=== PATIENT | male | born 1965 | race American Indian/Alaskan Native ===

== ENCOUNTER 2021-08-25 18:53 | Emergency (ER) | payer MEDICAID ==
--- NOTE | 2021-08-25 19:01 | Emergency Department Report ---
ED General Adult HPI - General Chief complaint: GI Bleed Stated complaint: RECTAL BLEEDING/GI BLEED Time Seen by Provider: 08/25/21 19:00 Source: patient, EMS (Verbal report received from emergency medical services. EMS documentation not available at time of chart dictation ), RN notes reviewed Mode of arrival: Stretcher Limitations: No Limitations - History of Present Illness Initial comments: This is a 55-year-old gentleman. He is brought to the hospital by emergency medical services with a complaint of lower GI bleed. Patient currently taking Eliquis for left lower extremity DVT. 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 He was recently admitted to [facility] for lower GI blee d. He does not believe he had a colonoscopy. He denies physical pain. He currently denies headache, neck pain, chest pain, abdominal pain, shortness of breath and dysuria. He reports bright red blood per rectum today x1. -: Sudden Consistency: now resolved Improves with: none Worsens with: none Associated Symptoms: denies other symptoms - Related Data Allergies Allergy/AdvReac Type Severity Reaction Status Date / Time Sulfa (Sulfonamide Allergy Hives Verified 08/25/21 19:38 Antibiotics) ED Review of Systems ROS: Stated complaint: RECTAL BLEEDING/GI BLEED Other details as noted in HPI Comment: All other systems reviewed and negative Gastrointestinal: hematochezia ED Physical Exam - General Limitations: No Limitations General appearance: alert, in no apparent distress - Head Head exam: Present: atraumatic, normocephalic - Eye Eye exam: Present: normal appearance, EOMI. Absent: nystagmus - ENT ENT exam: Present: normal exam, normal orophraynx, mucous membranes moist, normal external ear exam - Neck Neck exam: Present: normal inspection, full ROM. Absent: tenderness, meningismus - Respiratory Respiratory exam: Present: normal lung sounds bilaterally. Absent: respiratory distress, wheezes, rales, rhonchi, stridor, decreased breath sounds - Cardiovascular Cardiovascular Exam: Present: regular rate, normal rhythm, normal heart sounds. Absent: bradycardia, tachycardia, irregular rhythm, systolic murmur, diastolic murmur, rubs, gallop - GI/Abdominal GI/Abdominal exam: Present: soft, normal bowel sounds. Absent: distended, tenderness, guarding, rebound, rigid - Rectal Rectal exam: Present: normal inspection (Patient provides consent for rectal examination. Chaperoned by nurse Shira), normal rectal tone. Absent: black stool, bloody stool - Extremities Exam Extremities exam: Present: normal inspection, full ROM, other (2+ pulses noted in the bilateral upper and lower extremities. There is no palpable cord. negative Homans sign. Muscular compartments are soft. The pelvis is stable.). Absent: pedal edema, calf tenderness - Back Exam Back exam: Present: normal inspection. Absent: tenderness, CVA tenderness (R), CVA tenderness (L), paraspinal tenderness, vertebral tenderness - Neurological Exam Neurological exam: Present: alert, oriented X3, other (No facial droop. Tongue midline. Extraocular movements intact bilaterally. Facial sensation intact to light touch in V1, V2, V3 distribution bilaterally. 5 and a 5 strength in 4 extremities. Sensation intact to light touch in 4 extremities.). Absent: motor sensory deficit - Psychiatric Psychiatric exam: Present: normal affect, normal mood - Skin Skin exam: Present: warm, dry, intact, normal color. Absent: rash ED Course Vital Signs 08/25/21 19:38 Temperature 97.9 F Pulse Rate 88 Respiratory 18 Rate Blood Pressure 115/88 O2 Sat by Pulse 100 Oximetry - Reevaluation(s) Reevaluation #1: 08/25/21 19:32 Differential diagnosis, including but not limited to: Angiodysplasia, diverticulosis, anticoagulated Lower GI bleed Assessment and plan: 55-year-old gentleman with report of lower GI bleed. On my examination, he is afebrile, with reassuring vital signs, and in no acute distress. No blood on rectal examination. Furthermore, reports only one lifetime DVT, in 2019. It is not clear why he reports that he is still on systemic anticoagulation. The patient is somewhat of a poor historian, and is not able to clarify why exactly he is on anticoagulation when he had a DVT in 2019. In any event, check appropriate laboratory studies, and reassess. I do not appreciate rectal bleeding at this time. Should laboratory studies be unremarkable, I think it would be reasonable for the patient to temporarily hold systemic anticoagulation, very closely follow-up with outpatient primary care and/or GI, to clarify whether or not he needs to be on lifelong anticoagulation. 08/25/21 20:20 Laboratory studies are essentially unremarkable. Vital signs are stable at this time. Patient updated. CBC specifically unremarkable. Liver and renal panel unremarkable. Patient counseled on findings. May temporarily discontinue systemic anticoagulation, will need to closely follow-up with outpatient primary care, hematology oncology, GI. Return precautions reviewed. All questions answered. Patient asking to eat at this time ED Medical Decision Making - Lab Data Result diagrams: 08/25/21 19:23 08/25/21 19:23 Vital Signs 08/25/21 19:38 Temperature 97.9 F Pulse Rate 88 Respiratory 18 Rate Blood Pressure 115/88 O2 Sat by Pulse 100 Oximetry Lab Results 08/25/21 08/25/21 Range/Units 19:23 19:23 WBC 5.6 (4.5-11.0) K/mm3 RBC 4.55 (3.65-5.03) M/mm3 Hgb 12.7 (11.8-15.2) gm/dl Hct 39.3 (35.5-45.6) % MCV 86 (84-94) fl MCH 28 (28-32) pg MCHC 32 (32-34) % RDW 13.7 (13.2-15.2) % Plt Count 242 (140-440) K/mm3 Lymph % (Auto) 27.1 (13.4-35.0) % [place] % (Auto) 9.9 H (0.0-7.3) % Eos % (Auto) 1.6 (0.0-4.3) % Baso % (Auto) 0.5 (0.0-1.8) % Lymph # (Auto) 1.5 (1.2-5.4) K/mm3 [place] # (Auto) 0.6 (0.0-0.8) K/mm3 Eos # (Auto) 0.1 (0.0-0.4) K/mm3 Baso # (Auto) 0.0 (0.0-0.1) K/mm3 Seg Neutrophils % 60.9 (40.0-70.0) % Seg Neutrophils # 3.4 (1.8-7.7) K/mm3 Sodium 141 (137-145) mmol/L Potassium 3.9 (3.6-5.0) mmol/L Chloride 103.4 (98-107) mmol/L Carbon Dioxide 25 (22-30) mmol/L Anion Gap 17 mmol/L BUN 14 (9-20) mg/dL Creatinine 0.8 (0.8-1.3) mg/dL Estimated GFR > 60 ml/min BUN/Creatinine Ratio 18 % Glucose 84 (75-100) mg/dL Calcium 9.0 (8.4-10.2) mg/dL Total Bilirubin 0.80 (0.1-1.2) mg/dL AST 33 (5-40) units/L ALT 46 (7-56) units/L Alkaline Phosphatase 85 (35-129) units/L Total Protein 7.3 (6.3-8.2) g/dL Albumin 4.8 (3.9-5) g/dL Albumin/Globulin Ratio 1.9 % - EKG Data -: EKG Interpreted by Me EKG shows normal: sinus rhythm Rate: normal - EKG Data 08/25/21 19:31 The EKG is interpreted at 19: 24 Sinus rhythm, rate 88 bpm. There is multiple PVCs, left axis deviation, QTC 488 ms, motion artifact. Abnormal EKG. Not a STEMI. Critical care attestation.: If time is entered above; I have spent that time in minutes in the direct care of this critically ill patient, excluding procedure time. ED Disposition Clinical Impression: History of GI bleed Disposition: HOME / SELF CARE / HOMELESS Is pt being admited?: No Does the pt Need Aspirin: No Condition: Good Additional Instructions: Do not take Motrin, ibuprofen, Naprosyn, Aleve. Patient may temporarily hold anticoagulation. We do recommend follow-up with a primary care doctor or hematology assurance specialist, such as Dr. Wren, within the next week, to determine patient's suitability to discontinue long- term anticoagulation. [facility] is a local medical clinic where patient may obtain a primary care evaluation. Patient should follow-up with a household appliances salesperson, such as those at [facility], within the next week to 2 weeks. Please return to the emergency room right away with new pain, worsened pain, migration of pain, projectile vomiting, change in mental status, confusion, inability tolerate liquid feeds, new, worsened or different symptoms not present on the initial emergency room evaluation Referrals: EMY WREN MD [Staff Physician] - 3-5 Days [facility] [Provider Group] - 3-5 Days [facility] [Provider Group] - 3-5 Days Forms: Accompanied Note
[2021-08-25 20:11] LABS: Basophils % (Auto) 0.5 % (0.0-1.8); Eosinophils # (Auto) 0.1 K/mm3 (0.0-0.4); Eosinophils % (Auto) 1.6 % (0.0-4.3); Hematocrit 39.3 % (35.5-45.6); Hemoglobin 12.7 gm/dl (11.8-15.2); Lymphocytes # (Auto) 1.5 K/mm3 (1.2-5.4); Lymphocytes % (Auto) 27.1 % (13.4-35.0); Mean Corpuscular HGB Conc 32 % (32-34); Mean Corpuscular Volume 86 fl (84-94); Monocytes # (Auto) 0.6 K/mm3 (0.0-0.8); Monocytes % (Auto) 9.9 % (0.0-7.3); Platelet Count 242 K/mm3 (140-440); Red Blood Count 4.55 M/mm3 (3.65-5.03); Red Cell Distribution Width 13.7 % (13.2-15.2)
[2021-08-25 20:15] LABS: Alanine Aminotransferase 46 units/L (7-56); Albumin 4.8 g/dL (3.9-5); BUN/Creatinine Ratio 18; Blood Urea Nitrogen 14 mg/dL (9-20); Hemolysis Index 3
[2021-08-25 20:21] LABS: INR 1.07 (0.87-1.13)
[2021-08-25 20:22] LABS: Partial Thromboplastin Time 31.4 Sec. (24.2-36.6)
[2021-08-25 22:30] VITALS: BP 116/67
--- NOTE | 2021-08-26 09:46 | Electrocardiograph Report ---
[facility] Test Date: 2021-08-25 Test Time: 19:24:37 Pat Name: EMILY CANALES Department: Room: Gender: M Ward Nurse: [id number] : 1965 Requested By: PEYTON HANSEN Order Number: [id number] Reading MD: Jonnie Saldana Measurements Intervals [place] Rate: 88 P: 63 SC: 194 QRS: -16 QRSD: 101 T: 120 QT: 405 QTc: 488 Interpretive Statements Sinus rhythm Paired ventricular premature complexes Probable left atrial enlargement Nonspecific T abnormalities, lateral leads No previous ECG available for comparison Electronically Signed On 08-26-2021 9:46:19 EDT by Jonnie Saldana
== END 2021-08-25 22:30 | disposition home or self-care (01) ==
LOC: ED 18:53
DX: K92.2 Gastrointestinal hemorrhage, unspecified (principal); Z88.2 Allergy status to sulfonamides; Z79.899 Other long term (current) drug therapy
CPT/HCPCS: 36415; 80053; 82270; 85025; 85610; 85730; 86850; 86900; 86901; 93005; 99284

== ENCOUNTER 2021-11-23 18:12 | Inpatient (IN) | payer MEDICAID ==
--- NOTE | 2021-11-23 19:23 | Emergency Department Report ---
HPI - General Chief Complaint: Fall Time Seen by Provider: 11/23/21 18:47 - HPI HPI: Room 4 The patient is a 55-year-old male present with a chief complaint "I think I was having a TIA." The patient states approximate 1.5 hours prior to arrival he not iced the right side of his face was numb and he felt as though his face was twisting up. Patient states he has residual left-sided weakness from a previous CVA but when he attempted to get out of bed he fell between the bed and his wall and was stuck. The patient states his roommates were knocking on his door but he could not speak. Patient states he wanted to speak but he was aphasic for approximate 45 minutes. The roommates called 911 and police made entry into the room. In the ED the patient states his symptoms have improved and he is now able to speak. Patient states he had numbness in his right face and in his right shoulder but denies having any weakness of the right upper extremity or right lower extremity. ED Past Medical Hx - Past Medical History Hx Hypertension: Yes Hx CVA: Yes (Left Hemiparesis) Hx Congestive Heart Failure: Yes Hx Diabetes: Yes Additional medical history: DVT. GI Bleed - Surgical History Past Surgical History?: No - Family History Family history: no significant - Social History Smoking Status: Never Smoker Substance Use Type: None (Denies illicit drug use), Alcohol (Frequently) ED Review of Systems ROS: Stated complaint: WEAKNESS/CHEST PAIN Other details as noted in HPI Constitutional: no symptoms reported Eyes: denies: eye pain ENT: denies: throat pain Respiratory: no symptoms reported Cardiovascular: denies: chest pain Endocrine: no symptoms reported Gastrointestinal: denies: abdominal pain Genitourinary: denies: dysuria Musculoskeletal: denies: back pain Neurological: paresthesias, other (Aphasia). denies: headache Physical Exam - Physical Exam Vital Signs: Vital Signs 11/23/21 18:12 Temperature 98.2 F Pulse Rate 88 Respiratory 18 Rate Blood Pressure 132/86 [Left] O2 Sat by Pulse 99 Oximetry Physical Exam: GENERAL: The patient is well-developed well-nourished male lying on stretcher not appearing to be in acute distress. [] HEENT: Normocephalic. Atraumatic. Extraocular motions are intact. Patient has moist mucous membranes. NECK: Supple. Trachea midline CHEST/LUNGS: Clear to auscultation. There is no respiratory distress noted. HEART/CARDIOVASCULAR: Regular. There is no tachycardia. There is no gallop rub or murmur. ABDOMEN: Abdomen is soft, nontender. Patient has normal bowel sounds. There is no abdominal distention. SKIN: There is no rash. There is no edema. There is no diaphoresis. NEURO: The patient is awake, alert, and oriented. The patient is cooperative. The patient has left hemiparesis from previous CVA. The patient has normal speech. Cranial nerves II through XII grossly intact except for cranial nerve #11 on the left. GCS 15 MUSCULOSKELETAL: There is no evidence of acute injury. ED Course Vital Signs 11/23/21 18:12 Temperature 98.2 F Pulse Rate 88 Respiratory 18 Rate Blood Pressure 132/86 [Left] O2 Sat by Pulse 99 Oximetry - Consultations Consultation #1: 11/23/21 19:40 Case discussed with telemetry neurology-no tPA. Admit for work-up including MRI ED Medical Decision Making - Lab Data Result diagrams: 11/23/21 19:45 11/23/21 19:45 Laboratory Tests 11/23/21 11/23/21 11/23/21 19:45 19:45 19:45 WBC 5.8 RBC 4.69 Hgb 13.5 Hct 40.2 MCV 86 MCH 29 MCHC 34 RDW 14.9 Plt Count 299 Lymph % (Auto) 28.4 Lane % (Auto) 9.1 H Eos % (Auto) 1.7 Baso % (Auto) 0.7 Lymph # (Auto) 1.6 Lane # (Auto) 0.5 Eos # (Auto) 0.1 Baso # (Auto) 0.0 Seg Neutrophils % 60.1 Seg Neutrophils # 3.5 PT 14.8 INR 1.02 APTT 31.5 Thrombin Time 17.8 Sodium 140 Potassium 3.9 Chloride 105.3 Carbon Dioxide 22 Anion Gap 17 BUN 9 Creatinine 0.8 Estimated GFR > 60 BUN/Creatinine Ratio 11 Glucose 79 Calcium 9.6 - Radiology Data Radiology results: report reviewed (CT head), image reviewed (CT head) [facility] [address] [place] [address] Cat Scan Report Signed Patient: EMILY CANALES MR#: [id number] : 1965 Acct:[id number] Age/Sex: 55 / M ADM Date: 11/23/21 Loc: ED Attending Dr: Ordering Physician: PATI GUTIERREZ MD Date of Service: 11/23/21 Procedure(s): CT head/brain wo con Accession Number(s): [id number] cc: PATI GUTIERREZ MD CT head/brain wo con INDICATION / CLINICAL INFORMATION: 55 years Male; Episode of aphasia, right facial numbness. TECHNIQUE: Routine CT head without contrast. All CT scans at this location are performed using CT dose reduction for ALARA by means of automated exposure control. COMPARISON: None. FINDINGS: BRAIN / INTRACRANIAL CONTENTS: The motion degrades image quality. However, there is an older infarct involving right ganglia capsular region with encephalomalacia and ex vacuo dilatation of the right lateral ventricle as well as prominence of the right sylvian fissure. There is also notable layering degeneration involving the right midbrain. There is otherwise mild microvascular angiopathy. There is no clear CT evidence of acute intracranial hemorrhage or significant mass effect. ORBITS: No significant abnormality of visualized orbits. SINUSES / MASTOIDS: No significant abnormality in the visualized paranasal sinuses or mastoid air cells. CRANIOCERVICAL JUNCTION: No significant abnormality. ADDITIONAL FINDINGS: None. IMPRESSION: 1. There is a large old infarct involving the gangliocapsular region with encephalomalacia as described. 2. There is no CT evidence of acute intracranial hemorrhage. Signer Name: Moises Ruth MD Signed: 11/23/2021 8:10 PM Workstation Name: [id number] Transcribed By: MR Dictated By: Moises Ruth MD Electronically Authenticated By: Moises Ruth MD Signed Date/Time: 11/23/212009 DD/ 05 TD/TT: - Differential Diagnosis TIA, CVA Critical care attestation.: If time is entered above; I have spent that time in minutes in the direct care of this critically ill patient, excluding procedure time. ED Disposition Clinical Impression: TIA (transient ischemic attack) Disposition: ADMITTED INPATIENT Is pt being admited?: Yes Does the pt Need Aspirin: Yes Condition: Fair Time of Disposition: 21:17 (Care transferred to hospitalist (Dr Frank))
[2021-11-23 20:00] LABS: Basophils % (Auto) 0.7 % (0.0-1.8); Eosinophils # (Auto) 0.1 K/mm3 (0.0-0.4); Eosinophils % (Auto) 1.7 % (0.0-4.3); Hematocrit 40.2 % (35.5-45.6); Hemoglobin 13.5 gm/dl (11.8-15.2); Lymphocytes # (Auto) 1.6 K/mm3 (1.2-5.4); Lymphocytes % (Auto) 28.4 % (13.4-35.0); Mean Corpuscular HGB Conc 34 % (32-34); Mean Corpuscular Volume 86 fl (84-94); Monocytes # (Auto) 0.5 K/mm3 (0.0-0.8); Monocytes % (Auto) 9.1 % (0.0-7.3); Platelet Count 299 K/mm3 (140-440); Red Blood Count 4.69 M/mm3 (3.65-5.03); Red Cell Distribution Width 14.9 % (13.2-15.2)
--- NOTE | 2021-11-23 20:07 | Emergency Department Report ---
Blank Doc - Documentation Documentation: [facility] Consult Note # Demographics Consult Type: Acute Stroke Level 2 (4.5-24 hrs) Patient Location: Emergency Room First Name: EMILY Last Name: ALLY Date of : 1965 Age: 55 Gender: Male Facility: [facility] Time of Initial Page ( Time): 11/23/2021, 19:27 Time of Return Call ( Time): 11/23/2021, 19:27 # HPI History: 55yo M presents with right sided facial numbness and then fell. was unable to stand. now symptoms are improved. he is at his baseline weakness Context/Pre-existing conditions: pre-existing motor deficit left # Scores Time of exam and NIHSS ( Time): 11/23/2021, 19:34 Level of Consciousness 1a: [0] = Alert; keenly responsive LOC Questions 1b: [0] = Answers both questions correctly LOC Commands 1c: [0] = Performs both tasks correctly Best Gaze 2: [0] = Normal Visual 3: [0] = No visual loss Facial Palsy 4: [1] = Minor paralysis Motor Arm Left 5a: [3] = No effort against gravity Motor Arm Right 5b: [0] = No drift Motor Leg Left 6a: [2] = Some effort against gravity Motor Leg Right 6b: [0] = No drift Limb Ataxia 7: [0] = Absent Sensory 8: [2] = Severe to total sensory loss Best Language 9: [0] = No aphasia Dysarthria 10: [0] = Normal Extinction and Inattention 11: [0] = No abnormality NIHSS Total: 8 # Exam Language: stuttering speech # [id number] Past Medical History: congestive heart failure Diabetes hypertension stroke # Assessment Impression: Ischemic Stroke (Acute) Stroke Mimic # Plan Thrombolytic/Intervention: NOT IV Thrombolysis or IA Intervention candidate Thrombolytic Exclusion (< 3 hour window): non-disabling deficit Thrombolytic Exclusion: at baseline deficits Intraarterial Exclusion: clinically consistent with small vessel disease Imaging: (urgency: STAT): CT Angiogram Head and CT Angiogram Neck AND call back with results if abnormal Imaging: (urgency: routine): MRI Brain without contrast Other: I have discussed my recommendations with the referring provider Additional Recommendations: Further work-up based on MRI results
[2021-11-23 20:09] LABS: INR 1.02 (0.87-1.13); Partial Thromboplastin Time 31.5 Sec. (24.2-36.6); Thrombin Time 17.8 Sec. (15.1-19.6)
--- NOTE | 2021-11-23 20:14 | Cat Scan Report ---
CT head/brain wo con INDICATION / CLINICAL INFORMATION: 55 years Male; Episode of aphasia, right facial numbness. TECHNIQUE: Routine CT head without contrast. All CT scans at this location are performed using CT dos e reduction for ALARA by means of automated exposure control. COMPARISON: None. FINDINGS: BRAIN / INTRACRANIAL CONTENTS: The motion degrades image quality. However, there is an older infarct involving right ganglia capsular region with encephalomalacia and ex vacuo dilatation of the right la teral ventricle as well as prominence of the right sylvian fissure. There is also notable layering de generation involving the right midbrain. There is otherwise mild microvascular angiopathy. There is no clear CT evidence of acute intracranial hemorrhage or significant mass effect. ORBITS: No significant abnormality of visualized orbits. SINUSES / MASTOIDS: No significant abnormality in the visualized paranasal sinuses or mastoid air priti ls. CRANIOCERVICAL JUNCTION: No significant abnormality. ADDITIONAL FINDINGS: None. IMPRESSION: 1. There is a large old infarct involving the gangliocapsular region with encephalomalacia as describ ed. 2. There is no CT evidence of acute intracranial hemorrhage. Signer Name: Moises Ruth MD Signed: 11/23/2021 8:10 PM Workstation Name: [id number]
[2021-11-23 20:15] LABS: BUN/Creatinine Ratio 11; Blood Urea Nitrogen 9 mg/dL (9-20); Calcium 9.6 mg/dL (8.4-10.2); Hemolysis Index 4
[2021-11-23] MEDS ORDERED: ASPIRIN 325 MG TAB PO ONE (21:18)
[2021-11-23] MEDS ORDERED: DEXTROSE 50% IN WATER (25GM) 50 ML SYRINGE IV PRN (21:41)
[2021-11-23] MEDS ORDERED: MORPHINE 4 MG/1 ML INJ IV PRN ×2 (21:41)
[2021-11-23] MEDS ORDERED: METOCLOPRAMIDE 10 MG TAB PO PRN (21:41)
[2021-11-23] MEDS ORDERED: PROMETHAZINE 25 MG RECT SUPP PR PRN (21:41)
[2021-11-23] MEDS ORDERED: MAGNESIUM HYDROXIDE (MOM) ORAL LIQD UDC PO PRN ×2 (21:41)
[2021-11-23] MEDS ORDERED: ACETAMINOPHEN 325 MG TAB PO PRN ×2 (21:41)
[2021-11-23] MEDS ORDERED: ONDANSETRON 4 MG/2 ML INJ IV PRN ×2 (21:41)
[2021-11-23] MEDS ORDERED: MORPHINE 2 MG/1 ML INJ IV PRN ×2 (21:41)
--- NOTE | 2021-11-23 21:55 | History and Physical Report ---
History of Present Illness Date of examination: 11/23/21 Date of admission: 11/23/2021 Chief complaint: Right sided weakness History of present illness: 55-year-old -[place]og[place] male with known history of CVA with left hemiparesis, hypertension, CHF, diabetes mellitus and history of DVT in the past presented to the emergency room today complaining of numbness on the right side of his face. Patient indicates that he felt he was having a TIA. He has had a previous CVA with residual left hemiparesis in the past. Was attempting to get out of the bed when he had sudden weakness. He had difficulty speaking for some time. Symptoms were said to have taken place about an hour and half prior to reporting to the emergency room. Upon arrival in the emergency room his speech had returned to normal. Roommate was said to have called 911 to come to his rescue. Work-up in the emergency room today, CT scan of the head shows large old infarct involving the ganglial capsular region with encephalomalacia. There is no CT evidence of acute intracranial hemorrhage. Labs were essentially unremarkable. Patient was evaluated by the neurologist and recommendation was to work patient up for possible CVA. Past History Past Medical History: diabetes, DVT, heart failure, stroke (With left hemiparesis), other (H/O GI Bleed) Past Surgical History: No surgical history Social history: alcohol abuse Family history: no significant family history Medications and Allergies Allergies Allergy/AdvReac Type Severity Reaction Status Date / Time Sulfa (Sulfonamide Allergy Hives Verified 11/23/21 18:27 Antibiotics) Active Meds: Active Medications Acetaminophen (Acetaminophen 325 Mg Tab) 650 mg PO Q4H PRN PRN Reason: Pain MILD(1-3)/Fever >100.5/GARCIA Acetaminophen (Acetaminophen 325 Mg Tab) 650 mg PO Q4H PRN PRN Reason: Pain, Mild (1-3) Aspirin (Aspirin 325 Mg Tab) 325 mg PO QDAY ADAM Atorvastatin Calcium (Atorvastatin 40 Mg Tab) 40 mg PO QHS ADAM Bisacodyl (Bisacodyl 10 Mg Rect Supp) 10 mg CA QDAY PRN PRN Reason: Constipation Dextrose (Dextrose 50% In Water (25gm) 50 Ml Syringe) 50 ml IV Q30MIN PRN; Protocol PRN Reason: Hypoglycemia Dextrose (Dextrose 50% In Water (25gm) 50 Ml Syringe) 50 ml IV Q30MIN PRN; Protocol PRN Reason: Hypoglycemia Heparin Sodium (Porcine) (Heparin 5,000 Unit/1 Ml Vial) 5,000 unit SUB-Q Q8HR ADAM Insulin Human Lispro (Insulin Lispro 100 Unit/Ml) 0 unit SUB-Q ACHS ADAM; Protocol Magnesium Hydroxide (Magnesium Hydroxide (Mom) Oral Liqd Udc) 30 ml PO Q4H PRN PRN Reason: Constipation Magnesium Hydroxide (Magnesium Hydroxide (Mom) Oral Liqd Udc) 30 ml PO Q4H PRN PRN Reason: Constipation Metoclopramide HCl (Metoclopramide 10 Mg Tab) 10 mg PO Q6H PRN PRN Reason: Nausea And Vomiting Morphine Sulfate (Morphine 2 Mg/1 Ml Inj) 2 mg IV Q4H PRN PRN Reason: Pain, Moderate (4-6) Morphine Sulfate (Morphine 4 Mg/1 Ml Inj) 4 mg IV Q4H PRN PRN Reason: Pain , Severe (7-10) Morphine Sulfate (Morphine 2 Mg/1 Ml Inj) 2 mg IV Q4H PRN PRN Reason: Pain, Moderate (4-6) Morphine Sulfate (Morphine 4 Mg/1 Ml Inj) 4 mg IV Q4H PRN PRN Reason: Pain , Severe (7-10) Ondansetron HCl (Ondansetron 4 Mg/2 Ml Inj) 4 mg IV Q8H PRN PRN Reason: Nausea And Vomiting Ondansetron HCl (Ondansetron 4 Mg/2 Ml Inj) 4 mg IV Q8H PRN PRN Reason: Nausea And Vomiting Promethazine HCl (Promethazine 25 Mg Rect Supp) 25 mg CA Q6H PRN PRN Reason: Nausea And Vomiting Sodium Chloride (Sodium Chloride 0.9% 10 Ml Flush Syringe) 10 ml IV BID ADAM Sodium Chloride (Sodium Chloride 0.9% 10 Ml Flush Syringe) 10 ml IV PRN PRN PRN Reason: LINE FLUSH Sodium Chloride (Sodium Chloride 0.9% 10 Ml Flush Syringe) 10 ml INJ PRN PRN PRN Reason: LINE FLUSH Review of Systems Constitutional: no fever, no chills Ears, nose, mouth and throat: no nasal congestion, no sore throat Cardiovascular: no chest pain, no palpitations Respiratory: no cough, no shortness of breath Gastrointestinal: no abdominal pain, no nausea, no vomiting, no diarrhea Genitourinary Male: no dysuria, no hematuria, no flank pain, no nocturia Musculoskeletal: no neck pain, no low back pain Integumentary: no rash, no pruritis Neurological: numbness (Facial Numbness), change in speech, no headaches Psychiatric: no anxiety, no depression Endocrine: no polyphagia, no polydipsia, no polyuria, no nocturia Exam - Constitutional Vitals: Temp Pulse Resp BP Pulse Ox 98.2 F 88 18 113/84 98 11/23/21 18:12 11/23/21 18:12 11/23/21 18:12 11/23/21 21:31 11/23/21 21:31 General appearance: Present: no acute distress, well-nourished - EENT Eyes: Present: PERRL, EOM intact. Absent: scleral icterus ENT: hearing intact, clear oral mucosa, dentition normal - Neck Neck: Present: supple, normal ROM - Respiratory Respiratory effort: normal Respiratory: bilateral: CTA - Cardiovascular Rhythm: regular Heart Sounds: Present: S1 & S2. Absent: gallop, systolic murmur, diastolic murmur, rub, click - Extremities Extremities: no ischemia, pulses intact, pulses symmetrical, No edema, normal temperature, normal color, Full ROM Peripheral Pulses: within normal limits - Abdominal General gastrointestinal: Present: soft, non-tender, non-distended, normal bowel sounds. Absent: mass - Integumentary Integumentary: Present: clear, warm, dry, normal turgor. Absent: rash - Musculoskeletal Musculoskeletal: left sided weakness - Psychiatric Psychiatric: appropriate mood/affect, intact judgment & insight, memory intact, cooperative - Neurologic Neurologic: CNII-XII intact, no focal deficits, moves all extremities Results - Labs CBC & Chem 7: 11/23/21 19:45 11/23/21 19:45 Labs: Abnormal lab results 11/23/21 Range/Units 19:45 [place] % (Auto) 9.1 H (0.0-7.3) % Assessment and Plan Assessment: 1.TIA vs CVA 2.Hypertension 3.D/[place] 4.H/O CVA with left hemiparesis Plan: 1.Admitted to telemetry 2.Placed on daily aspirin and statin 3.Schedule for carotid doppler, MRI brain 4.Resume routine home medications DVT Prophylaxis:SQ Heparin Code Status: Full Code
[2021-11-24] MEDS: HEPARIN 5,000 UNIT/1 ML VIAL SUB-Q SCH ×2 (00:45→05:53)
[2021-11-24] MEDS: INSULIN LISPRO 100 UNIT/ML SUB-Q SCH ×5 (00:49→21:30)
[2021-11-24 05:53] LABS: BUN/Creatinine Ratio 13; Blood Urea Nitrogen 12 mg/dL (9-20); Hemolysis Index 13
[2021-11-24 05:55] LABS: Chol/HDL Ratio 2.69 %
[2021-11-24] MEDS: ASPIRIN 325 MG TAB PO SCH (10:07)
--- NOTE | 2021-11-24 10:25 | Vascular Lab Report ---
DUPLEX DOPPLER ULTRASOUND CAROTID, BILATERAL INDICATION / CLINICAL INFORMATION: stroke. COMPARISON: None available. FINDINGS: RIGHT CAROTID: Intimal thickening - PLAQUE ESTIMATE (%): < 50% - CCA velocity: 71 cm/sec. - ICA peak systolic velocity: 54 cm/sec. - ICA/CCA PSV Ratio: 0.76 Right Vertebral Artery: Antegrade flow. LEFT CAROTID: Intimal thickening - PLAQUE ESTIMATE (%): < 50% - CCA velocity: 69 cm/sec. - ICA peak systolic velocity: 70 cm/sec. - ICA/CCA PSV Ratio: 1.01 Left Vertebral Artery: Antegrade flow. IMPRESSION: 1. Right Internal Carotid Artery: Less than 50% diameter stenosis. 2. Left Internal Carotid Artery: Less than 50% diameter stenosis. Velocity criteria are extrapolated from diameter data as defined by the Society of Radiologists in Ul trasound Consensus Conference, Radiology 2003; 229;340-346. NO STENOSIS (NORMAL) - Plaque = none; ICA PSV < 125 cm/sec; ICA/CCA PSV Ratio < 2.0 <50% STENOSIS - Plaque < 50%; ICA PSV < 125 cm/sec; ICA/CCA PSV Ratio < 2.0 50-69% STENOSIS - Plaque > 50%; ICA PSV = 125-230 cm/sec; ICA/CCA PSV Ratio = 2.0-4.0 >70% BUT <100% STENOSIS - Plaque > 50%; ICA PSV > 230 cm/sec; ICA/CCA PSV Ratio > 4.0 NEAR OCCLUSION - Plaque = visible lumen; ICA PSV = high/low/none; ICA/CCA PSV Ratio = variable TOTAL OCCLUSION - Plaque = no lumen; ICA PSV = none; ICA/CCA PSV Ratio = N/A Signer Name: Al Shelby MD Signed: 11/24/2021 10:20 AM Workstation Name: [id number]
[2021-11-24] MEDS ORDERED: busPIRone 10 MG TAB PO SCH (11:00)
[2021-11-24] MEDS ORDERED: DOLUTEGRAVIR 50 MG, TENOFOVIR 300 MG, EMTRICITABINE 200 MG PO SCH (11:00)
[2021-11-24] MEDS ORDERED: IBUPROFEN 800 MG TAB PO PRN (11:39)
[2021-11-24] MEDS: FUROSEMIDE 20 MG TAB PO SCH (12:07)
[2021-11-24] MEDS: busPIRone 5 MG TAB PO SCH (12:08)
[2021-11-24] MEDS: EMTRICITABINE 200 MG CAP PO SCH (12:09)
[2021-11-24] MEDS: DOLUTEGRAVIR 50 MG TAB PO SCH (12:09)
[2021-11-24] MEDS: TENOFOVIR 300 MG TAB PO SCH (12:10)
--- NOTE | 2021-11-24 12:57 | Progress Note ---
Assessment and Plan Assessment and plan: #TIA vs CVA #H/O CVA with left hemiparesis -CT head, CTA head/neck: no acute abnormalities -repeat CT head ordered by Neurology -TTE showed LVEF , no PFO; carotid doppler <50% stenosis bilaterally -MRI not performed due to defibrillator -ST/PT/OT consulted -continue ASA + statin -continue telemetry -Neurology consulted, assistance appreciated #Hypertension -will resume home medications after medication reconciliation #Type II Diabetes Mellitus -continue sliding scale and accuchecks -goal glucose 140-180 #Hx of LE DVT -continue eliquis #Advanced care planning -Disease education conducted, care plan discussed, diagnoses discussed, prognosis discussed, and patient acknowledges understanding with care plan -Time: +30 min History Interval history: No acute is overnight. Patient reports a headache on the right side of his head that feels like he has swelling on the side of the head. He does report chronic weakness on the left side of his body but feels as though he has been more unsteady on his knees lately. He has no other complaints at this time. Hospitalist Physical - Physical exam Narrative exam: GENERAL: Well-developed well-nourished. In no acute distress. HEENT: Normocephalic. Atraumatic. NECK: Supple. CHEST/LUNGS: CTAB on room air HEART/CARDIOVASCULAR: RRR. No murmur, rubs or gallops appreciated. ABDOMEN: +BS. NT/ND. SKIN: No rashes noted. NEURO: Follows all commands. Decreased sensation and movement in the left upper and lower extremity. Cranial nerves intact grossly. MUSCULOSKELETAL: No joint effusion EXTREMITIES: No cyanosis, clubbing or edema. PSYCH: Cooperative. - Constitutional Vitals: Temp Pulse Resp BP Pulse Ox 97.5 F L 75 18 105/58 97 11/24/21 07:59 11/24/21 07:59 11/24/21 07:59 11/24/21 07:59 11/24/21 07:59 General appearance: Present: no acute distress, well-nourished Results - Labs CBC & Chem 7: 11/24/21 11:26 11/24/21 11:26 Labs: Laboratory Last Values WBC 5.8 K/mm3 (4.5-11.0) 11/23/21 19:45 RBC 4.69 M/mm3 (3.65-5.03) 11/23/21 19:45 Hgb 13.5 gm/dl (11.8-15.2) 11/23/21 19:45 Hct 40.2 % (35.5-45.6) 11/23/21 19:45 MCV 86 fl (84-94) 11/23/21 19:45 MCH 29 pg (28-32) 11/23/21 19:45 MCHC 34 % (32-34) 11/23/21 19:45 RDW 14.9 % (13.2-15.2) 11/23/21 19:45 Plt Count 299 K/mm3 (140-440) 11/23/21 19:45 Lymph % (Auto) 28.4 % (13.4-35.0) 11/23/21 19:45 [place] % (Auto) 9.1 % (0.0-7.3) H 11/23/21 19:45 Eos % (Auto) 1.7 % (0.0-4.3) 11/23/21 19:45 Baso % (Auto) 0.7 % (0.0-1.8) 11/23/21 19:45 Lymph # (Auto) 1.6 K/mm3 (1.2-5.4) 11/23/21 19:45 [place] # (Auto) 0.5 K/mm3 (0.0-0.8) 11/23/21 19:45 Eos # (Auto) 0.1 K/mm3 (0.0-0.4) 11/23/21 19:45 Baso # (Auto) 0.0 K/mm3 (0.0-0.1) 11/23/21 19:45 Seg Neutrophils % 60.1 % (40.0-70.0) 11/23/21 19:45 Seg Neutrophils # 3.5 K/mm3 (1.8-7.7) 11/23/21 19:45 PT 14.8 Sec. (12.2-14.9) 11/23/21 19:45 INR 1.02 (0.87-1.13) 11/23/21 19:45 APTT 31.5 Sec. (24.2-36.6) 11/23/21 19:45 Thrombin Time 17.8 Sec. (15.1-19.6) 11/23/21 19:45 Sodium 137 mmol/L (137-145) 11/24/21 03:55 Potassium 3.8 mmol/L (3.6-5.0) 11/24/21 03:55 Chloride 103.0 mmol/L (98-107) 11/24/21 03:55 Carbon Dioxide 26 mmol/L (22-30) 11/24/21 03:55 Anion Gap 12 mmol/L 11/24/21 03:55 BUN 12 mg/dL (9-20) 11/24/21 03:55 Creatinine 0.9 mg/dL (0.8-1.3) 11/24/21 03:55 Estimated GFR > 60 ml/min 11/24/21 03:55 BUN/Creatinine Ratio 13 % 11/24/21 03:55 Glucose 91 mg/dL (75-100) 11/24/21 03:55 POC Glucose 146 mg/dL (70-105) H 11/24/21 11:15 Calcium 9.0 mg/dL (8.4-10.2) 11/24/21 03:55 Triglycerides 133 mg/dL (2-149) 11/24/21 03:55 Cholesterol 124 mg/dL (50-199) 11/24/21 03:55 LDL Cholesterol Direct 65 mg/dL (50-130) 11/24/21 03:55 HDL Cholesterol 46 mg/dL (40-59) 11/24/21 03:55 Cholesterol/HDL Ratio 2.69 % 11/24/21 03:55 Duffy/IV: Voiding Method Urinal Active Medications - Current Medications Current Medications: Generic Name Dose Route Start Last Admin Trade Name Freq PRN Reason Stop Dose Admin Acetaminophen 650 mg 11/23/21 21:41 Acetaminophen 325 Mg Tab PO Q4H PRN Pain MILD(1-3)/Fever >100.5/GARCIA Apixaban 5 mg 11/24/21 22:00 Apixaban 5 Mg Tab PO Q12HR [facility] Protocol Aspirin 325 mg 11/24/21 10:00 11/24/21 10:07 Aspirin 325 Mg Tab PO 325 mg QDAY ADAM Administration Atorvastatin Calcium 40 mg 11/23/21 22:00 11/24/21 00:45 Atorvastatin 40 Mg Tab PO 40 mg QHS ADAM Administration Bisacodyl 10 mg 11/23/21 21:41 Bisacodyl 10 Mg Rect Supp VA QDAY PRN Constipation Buspirone HCl 5 mg 11/24/21 11:00 11/24/21 12:08 Buspirone 5 Mg Tab PO Not Given DAILY [facility] Dextrose 0 ml 11/23/21 21:41 Dextrose 50% In Water (25gm) 50 Ml Syringe IV Q30MIN PRN Hypoglycemia Protocol Dolutegravir Sodium 50 mg 11/24/21 11:00 11/24/21 12:09 Dolutegravir 50 Mg Tab PO Not Given QDAY [facility] Emtricitabine 200 mg 11/24/21 11:00 11/24/21 12:09 Emtricitabine 200 Mg Cap PO Not Given QDAY [facility] Furosemide 20 mg 11/24/21 11:00 11/24/21 12:07 Furosemide 20 Mg Tab PO 20 mg QDAY [facility] Administration Hydroxyzine Pamoate 50 mg 11/24/21 11:00 Hydroxyzine Pamoate 50 Mg Cap PO Q8H PRN Anxiety Ibuprofen 800 mg 11/24/21 11:39 11/24/21 12:06 Ibuprofen 800 Mg Tab PO 800 mg Q8H PRN Administration Headache Insulin Human Lispro 0 unit 11/23/21 22:00 11/24/21 11:35 Insulin Lispro 100 Unit/Ml SUB-Q Not Given ACHS [facility] Protocol Levothyroxine Sodium 100 mcg 11/25/21 06:00 Levothyroxine 100 Mcg Tab PO DAILY@0600 [facility] Magnesium Hydroxide 30 ml 11/23/21 21:41 11/24/21 05:52 Magnesium Hydroxide (Mom) Oral Liqd Udc PO 30 ml Q4H PRN Administration Constipation Metoclopramide HCl 10 mg 11/23/21 21:41 Metoclopramide 10 Mg Tab PO Q6H PRN Nausea And Vomiting Morphine Sulfate 4 mg 11/23/21 21:41 Morphine 4 Mg/1 Ml Inj IV Q4H PRN Pain , Severe (7-10) Morphine Sulfate 2 mg 11/23/21 21:41 Morphine 2 Mg/1 Ml Inj IV Q4H PRN Pain, Moderate (4-6) Ondansetron HCl 4 mg 11/23/21 21:41 Ondansetron 4 Mg/2 Ml Inj IV Q8H PRN Nausea And Vomiting Promethazine HCl 25 mg 11/23/21 21:41 Promethazine 25 Mg Rect Supp VA Q6H PRN Nausea And Vomiting Quetiapine Fumarate 100 mg 11/24/21 22:00 Quetiapine 100 Mg Tab PO QHS [facility] Sacubitril/Valsartan 1 each 11/24/21 22:00 Sacubitril/Valsartan 24-26 Mg Tab PO BID ADAM Sodium Chloride 10 ml 11/23/21 22:00 11/24/21 10:07 Sodium Chloride 0.9% 10 Ml Flush Syringe IV 10 ml BID ADAM Administration Sodium Chloride 10 ml 11/23/21 21:41 Sodium Chloride 0.9% 10 Ml Flush Syringe IV PRN PRN LINE FLUSH Tenofovir Disoproxil Fumarate 300 mg 11/24/21 11:00 11/24/21 12:10 Tenofovir 300 Mg Tab PO Not Given QDAY [facility] Trazodone HCl 50 mg 11/24/21 22:00 Trazodone 50 Mg Tab PO QHS [facility]
[2021-11-24 13:32] LABS: Hematocrit 41.3 % (35.5-45.6); Hemoglobin 13.9 gm/dl (11.8-15.2); Mean Corpuscular HGB Conc 34 % (32-34); Mean Corpuscular Volume 86 fl (84-94); Platelet Count 315 K/mm3 (140-440); Red Blood Count 4.79 M/mm3 (3.65-5.03); Red Cell Distribution Width 15.4 % (13.2-15.2)
--- NOTE | 2021-11-24 13:39 | Consultation ---
History of Present Illness Consult date: 11/24/21 Chief complaint: Right Facial Numbness History of present illness: The patient comes in for evaluation of right facial numbness , current complain is right head pressure . There is no major right upper extremity weakness , there is weakness on the left upper extremity which per patient is old but now complains of worsening weakness . Past History Past Medical History: diabetes, DVT, heart failure, stroke (With left hemiparesis), other (H/O GI Bleed) Past Surgical History: No surgical history Social history: alcohol abuse Family history: no significant family history Medications and Allergies Allergies Allergy/AdvReac Type Severity Reaction Status Date / Time Sulfa (Sulfonamide Allergy Hives Verified 11/23/21 18:27 Antibiotics) Active Meds: Active Medications Acetaminophen (Acetaminophen 325 Mg Tab) 650 mg PO Q4H PRN PRN Reason: Pain MILD(1-3)/Fever >100.5/GARCIA Apixaban (Apixaban 5 Mg Tab) 5 mg PO Q12HR [facility]; Protocol Aspirin (Aspirin 325 Mg Tab) 325 mg PO QDAY [facility] Last Admin: 11/24/21 10:07 Dose: 325 mg Atorvastatin Calcium (Atorvastatin 40 Mg Tab) 40 mg PO QHS [facility] Last Admin: 11/24/21 00:45 Dose: 40 mg Bisacodyl (Bisacodyl 10 Mg Rect Supp) [address] QDAY PRN PRN Reason: Constipation Buspirone HCl (Buspirone 5 Mg Tab) 5 mg PO DAILY [facility] Last Admin: 11/24/21 12:08 Dose: Not Given Dextrose (Dextrose 50% In Water (25gm) 50 Ml Syringe) 0 ml IV Q30MIN PRN; Protocol PRN Reason: Hypoglycemia Dolutegravir Sodium (Dolutegravir 50 Mg Tab) 50 mg PO QDAY [facility] Last Admin: 11/24/21 12:09 Dose: Not Given Emtricitabine (Emtricitabine 200 Mg Cap) 200 mg PO QDAY [facility] Last Admin: 11/24/21 12:09 Dose: Not Given Furosemide (Furosemide 20 Mg Tab) 20 mg PO QDAY [facility] Last Admin: 11/24/21 12:07 Dose: 20 mg Hydroxyzine Pamoate (Hydroxyzine Pamoate 50 Mg Cap) 50 mg PO Q8H PRN PRN Reason: Anxiety Ibuprofen (Ibuprofen 800 Mg Tab) 800 mg PO Q8H PRN PRN Reason: Headache Last Admin: 11/24/21 12:06 Dose: 800 mg Insulin Human Lispro (Insulin Lispro 100 Unit/Ml) 0 unit SUB-Q ACHS [facility]; Protocol Last Admin: 11/24/21 11:35 Dose: Not Given Levothyroxine Sodium (Levothyroxine 100 Mcg Tab) 100 mcg PO DAILY@0600 [facility] Magnesium Hydroxide (Magnesium Hydroxide (Mom) Oral Liqd Udc) 30 ml PO Q4H PRN PRN Reason: Constipation Last Admin: 11/24/21 05:52 Dose: 30 ml Metoclopramide HCl (Metoclopramide 10 Mg Tab) 10 mg PO Q6H PRN PRN Reason: Nausea And Vomiting Morphine Sulfate (Morphine 4 Mg/1 Ml Inj) 4 mg IV Q4H PRN PRN Reason: Pain , Severe (7-10) Morphine Sulfate (Morphine 2 Mg/1 Ml Inj) 2 mg IV Q4H PRN PRN Reason: Pain, Moderate (4-6) Ondansetron HCl (Ondansetron 4 Mg/2 Ml Inj) 4 mg IV Q8H PRN PRN Reason: Nausea And Vomiting Promethazine HCl (Promethazine 25 Mg Rect Supp) [address] Q6H PRN PRN Reason: Nausea And Vomiting Quetiapine Fumarate (Quetiapine 100 Mg Tab) 100 mg PO QHS [facility] Sacubitril/Valsartan (Sacubitril/Valsartan 24-26 Mg Tab) 1 each PO BID [facility] Sodium Chloride (Sodium Chloride 0.9% 10 Ml Flush Syringe) 10 ml IV BID [facility] Last Admin: 11/24/21 10:07 Dose: 10 ml Sodium Chloride (Sodium Chloride 0.9% 10 Ml Flush Syringe) 10 ml IV PRN PRN PRN Reason: LINE FLUSH Tenofovir Disoproxil Fumarate (Tenofovir 300 Mg Tab) 300 mg PO QDAY [facility] Last Admin: 11/24/21 12:10 Dose: Not Given Trazodone HCl (Trazodone 50 Mg Tab) 50 mg PO QHS [facility] Physical Examination - Vital Signs Vital Signs: Vital Signs Temp Pulse Resp BP Pulse Ox 98.2 F 88 18 132/86 99 11/23/21 18:12 11/23/21 18:12 11/23/21 18:12 11/23/21 18:12 11/23/21 18:12 - Physical Exam Narrative exam: The patient is alert , moves the right upper and lower extremity well. There is weakness in the left upper and lower extremity , Results - Laboratory Findings CBC and BMP: 11/23/21 19:45 11/24/21 11:26 Abnormal Lab Findings: Abnormal Labs 11/23/21 11/24/21 11/24/21 19:45 00:47 07:57 [place] % (Auto) 9.1 H POC Glucose 117 H 106 H 11/24/21 11:15 [place] % (Auto) POC Glucose 146 H Assessment and Plan 1. Head Pressure in a setting of Prior CVA - needs reassesment since MRI Brain cannot be performed due to having a defibrillator will have the patient repaeat CT Brain . 2. Reviewed All Home Medications . 3. Use PRN Tyelenol for GARCIA . 4. Repeat Head CT - for bleed . Call Back with Questions Dr. Montgomery
[2021-11-24 13:43] LABS: INR 0.98 (0.87-1.13)
[2021-11-24 13:44] LABS: Partial Thromboplastin Time 32.9 Sec. (24.2-36.6)
--- NOTE | 2021-11-24 14:25 | Electrocardiograph Report ---
[facility] Test Date: 2021-11-23 Test Time: 21:33:28 Pat Name: EMILY CANALES Department: Room: A454 1 Gender: M Manager Agricultural: JANNETH : 1965 Requested By: PATI GUTIERREZ Order Number: [id number] Reading MD: Joshua Saha Measurements Intervals [place] Rate: 77 P: 65 HI: 202 QRS: -3 QRSD: 106 T: 178 QT: 404 QTc: 459 Interpretive Statements Sinus rhythm Borderline prolonged HI interval Probable left atrial enlargement Nonspecific intraventricular conduction delay Nonspecific T wave abnormality Compared to ECG 08/25/2021 19:24:37 Ventricular ectopics are no longer evident Electronically Signed On 11-24-2021 14:24:41 EDT by Joshua Saha
--- NOTE | 2021-11-24 16:29 | Cat Scan Report ---
CT head/brain wo con INDICATION / CLINICAL INFORMATION: 55 years Male; CVA. TECHNIQUE: Routine CT head without contrast. All CT scans at this location are performed using CT dos e reduction for ALARA by means of automated exposure control. COMPARISON: 11/23/2021 FINDINGS: BRAIN / INTRACRANIAL CONTENTS: Encephalomalacia seen in the right frontoparietal region, extending in to the adjacent gangliocapsular region-moderately sized branch MCA infarct suggested. WA be difficult to evaluate for paul-infarct areas of ischemia without diffusion imaging by MRI. Otherwise, no acute hemorrhage, mass effect, midline shift, hydrocephalus, or acute, large territoria l infarct. cerebral and cerebellar atrophy. There are areas of decreased attenuation in the white matter of the cerebral hemispheres. These are n onspecific findings and may be related to microangiopathy (hypertension, diabetes, atherosclerosis), given the patient's age. It might be difficult to evaluate for small areas of ischemia without diffus ion imaging by MRI. CRANIOCERVICAL JUNCTION: No significant abnormality. ORBITS: No significant abnormality of visualized orbits. SINUSES / MASTOIDS: Mild mucosal thickening in the ethmoids. ADDITIONAL FINDINGS: Normal atherosclerotic disease is seen in the anterior circulation. IMPRESSION: 1. No focal mass, hemorrhage, hydrocephalus, or acute, large territorial infarct. Follow-up with diff usion imaging by MRI, as clinically warranted. Signer Name: Federico Vargas MD, III Signed: 11/24/2021 4:25 PM Workstation Name: [email or web address]
[2021-11-24] MEDS: APIXABAN 5 MG TAB PO SCH (21:14)
[2021-11-24] MEDS: SACUBITRIL/VALSARTAN 24-26 MG TAB PO SCH (21:15)
[2021-11-24] MEDS ORDERED: QUEtiapine 100 MG TAB PO SCH (22:00)
[2021-11-24] MEDS ORDERED: traZODone 50 MG TAB PO SCH (22:00)
[2021-11-25 05:06] VITALS: BP 93/49
[2021-11-25] MEDS ORDERED: LEVOTHYROXINE 112 MCG TAB PO SCH (06:00)
[2021-11-25] MEDS ORDERED: LEVOTHYROXINE 100 MCG TAB PO SCH (06:00)
[2021-11-25] MEDS: INSULIN LISPRO 100 UNIT/ML SUB-Q SCH ×2 (07:45→13:28)
--- NOTE | 2021-11-25 08:14 | Discharge Summary ---
Providers - Providers Date of Admission: 11/23/21 21:41 Date of discharge: 11/25/21 Attending physician: COOPER CHARLES MD 11/23/21 21:41 Consult to Dietitian/Nutrition [CONS] Routine Physician Instructions: Reason For Exam: Reason for Consult: Nutrition Recommendations Reason for Consult: Diet education Consult to Physician [CONS] Routine Comment: Consulting Provider: MARYSOL WARE Physician Instructions: Reason For Exam: TIA vs CVA Occupational Therapy Evaluate and Treat [CONS] Routine Comment: Reason For Exam: Neuro deficits Physical Therapy Evaluation and Treat [CONS] Routine Comment: Reason For Exam: Neuro deficits 11/23/21 21:45 Speech Therapy Evaluation and Treat [CONS] Routine Reason For Exam: swallow eval Primary care physician: KB SLOAN MD Hospitalization Reason for admission: CVA rule out Condition: Fair Hospital course: Patient is a 55-year-old male with history of hypertension, diabetes and 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 Initial CT of the head was negative for acute findings. MRI was unable to be completed due to defibrillator. Carotid artery Doppler showed less than 50% stenosis bilaterally. Echocardiogram revealed LVEF of 15 to 20% with mild diastolic dysfunction and no demonstrated PFO. Repeat CT head did not show any acute findings as well. Physical therapy evaluated the patient and he was discharged home with physical therapy. Disposition: 30 STILL A PATIENT Final Discharge Diagnosis (Prints w/discharge instructions): CVA ruled out, history of CVA with left hemiparesis. TIA. Hypertension. Type 2 diabetes. 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 History of DVT on anticoagulation Time spent for discharge: 40 minutes Core Measure Documentation - Palliative Care Palliative Care/ Comfort Measures: Not Applicable - Core Measures Any of the following diagnoses?: stroke - Stroke Discharge Requirements Statin for LDL = or >70 mg/dl on DC: Yes Anticoag for atrial fib/atrial flutter: Not Applicable Antithrombotic for ischemic stroke: Yes Exam - Physical Exam Narrative exam: GENERAL: Well-developed well-nourished. In no acute distress. HEENT: Normocephalic. Atraumatic. NECK: Supple. CHEST/LUNGS: CTAB on room air HEART/CARDIOVASCULAR: RRR. No murmur, rubs or gallops appreciated. ABDOMEN: +BS. NT/ND. SKIN: No rashes noted. NEURO: Follows all commands. Decreased sensation and movement in the left upper and lower extremity. Cranial nerves intact grossly. MUSCULOSKELETAL: No joint effusion EXTREMITIES: No cyanosis, clubbing or edema. PSYCH: Cooperative. - Constitutional Vitals: Temp Pulse Resp BP Pulse Ox 97.9 F 79 16 93/49 95 11/25/21 04:42 11/25/21 06:00 11/25/21 04:42 11/25/21 04:42 11/25/21 04:42 Plan Care Plan Goals: Please follow-up with your primary care provider. I have them to refer you to a Neurologist in the next 4 weeks. Your imaging and labs do not suggest a new stroke, but it could not be completely ruled out. Continue to take all your medications as they are prescribed to you. Physical therapy has recommended home health with physical therapy. Please work with the physical therapist to help improve your overall strength. Follow up with: KB SLOAN MD [Primary Care Provider] - 3-5 Days Prescriptions: AtorvaSTATin [Lipitor] 40 mg PO QHS 90 Days #90 tablet Aspirin 325 mg PO QDAY 90 Days #90 tablet
[2021-11-25] MEDS: FUROSEMIDE 20 MG TAB PO SCH (09:53)
[2021-11-25] MEDS: APIXABAN 5 MG TAB PO SCH (09:53)
[2021-11-25] MEDS: SACUBITRIL/VALSARTAN 24-26 MG TAB PO SCH ×2 (09:53→09:58)
[2021-11-25] MEDS: ASPIRIN 325 MG TAB PO SCH (09:53)
[2021-11-25] MEDS: EMTRICITABINE 200 MG CAP PO SCH (09:56)
[2021-11-25] MEDS: busPIRone 5 MG TAB PO SCH (09:56)
[2021-11-25] MEDS: DOLUTEGRAVIR 50 MG TAB PO SCH (09:57)
[2021-11-25] MEDS: TENOFOVIR 300 MG TAB PO SCH (09:57)
== END 2021-11-25 16:09 | disposition home health service (06) | DRG 69 ==
LOC: ED 18:12 → 4A 21:41
PROVIDERS: ADMIT Internal Medicine Geriatric Medicine; ATTEND Student in an Organized Health Care Education/Training Program
DX: G45.9 Transient cerebral ischemic attack, unspecified (principal); E11.9 Type 2 diabetes mellitus without complications; I69.354 Hemiplegia and hemiparesis following cerebral infarction affecting left non-dominant side; I50.42 Chronic combined systolic (congestive) and diastolic (congestive) heart failure; W06.XXXA Fall from bed, initial encounter; Y93.89 Activity, other specified; Y92.89 Other specified places as the place of occurrence of the external cause; Y99.8 Other external cause status; I11.0 Hypertensive heart disease with heart failure; Z88.2 Allergy status to sulfonamides
CPT/HCPCS: 36415; 70450; 80048; 80061; 82565; 82962; 85025; 85027; 85610; 85670; 85730; 93005; 93306; 93880; G0378; C8929; J1644; Q0177

== ENCOUNTER 2021-12-03 00:51 | Emergency (ER) | payer MEDICAID ==
[2021-12-03] MEDS: KETOROLAC 60 MG/2 ML INJ IM ONE ×2 (04:25→05:33)
[2021-12-03] MEDS ORDERED: KETOROLAC 30 MG/1 ML INJ IV ONE (05:21)
[2021-12-03] MEDS ORDERED: ONDANSETRON 4 MG/2 ML INJ IV ONE (06:37)
[2021-12-03] MEDS ORDERED: fentaNYL 100 MCG/2 ML INJ IV ONE (06:37)
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
--- NOTE | 2021-12-03 08:06 | Cat Scan Report ---
CT HEAD WITHOUT CONTRAST INDICATION / CLINICAL INFORMATION: Headache after fall hx cva. TECHNIQUE: All CT scans at this location are performed using CT dose reduction for ALARA by means of automated exposure control. COMPARISON: 11/24/2021 FINDINGS: HEMORRHAGE: None. EXTRA-AXIAL SPACES: Normal in size and morphology for the patient's age. VENTRICULAR SYSTEM: Normal in size and morphology for the patient's age. CEREBRAL PARENCHYMA: Related changes are seen in the right frontoparietal region, not significant mor nged. No acute territorial infarct. MIDLINE SHIFT / HERNIATION: None. CEREBELLUM / BRAINSTEM: No significant abnormality. ORBITS: Normal as visualized SOFT TISSUES: No significant abnormality. SKULL: No significant abnormality. PARANASAL SINUSES / MASTOID AIR CELLS: Normal as visualized ADDITIONAL FINDINGS: None. IMPRESSION: 1. No acute intracranial abnormality. 2. Redemonstrated not significant changed encephalomalacic changes of the right frontoparietal region . Signer Name: Chandrakant Fung DO Signed: 12/03/2021 8:01 AM Workstation Name: [id number]
[2021-12-03 08:17] VITALS: BP 104/66
== END 2021-12-03 11:21 | disposition home or self-care (01) ==
LOC: ED 00:51
DX: S09.90XA Unspecified injury of head, initial encounter (principal); X58.XXXA Exposure to other specified factors, initial encounter; Y93.89 Activity, other specified; Y92.89 Other specified places as the place of occurrence of the external cause; Y99.8 Other external cause status; I10 Essential (primary) hypertension; E11.9 Type 2 diabetes mellitus without complications
CPT/HCPCS: 70450; 96374; 96375; 99284; J1885; J2405; J3010

== ENCOUNTER 2021-12-30 18:07 | Emergency (ER) | payer MEDICAID ==
[2021-12-30 19:48] LABS: Basophils % (Auto) 0.9 % (0.0-1.8); Eosinophils # (Auto) 0.1 K/mm3 (0.0-0.4); Eosinophils % (Auto) 1.3 % (0.0-4.3); Hematocrit 42.8 % (35.5-45.6); Hemoglobin 14.2 gm/dl (11.8-15.2); Lymphocytes # (Auto) 1.4 K/mm3 (1.2-5.4); Lymphocytes % (Auto) 24.9 % (13.4-35.0); Mean Corpuscular HGB Conc 33 % (32-34); Mean Corpuscular Volume 87 fl (84-94); Monocytes # (Auto) 0.6 K/mm3 (0.0-0.8); Monocytes % (Auto) 9.9 % (0.0-7.3); Platelet Count 311 K/mm3 (140-440); Red Blood Count 4.94 M/mm3 (3.65-5.03); Red Cell Distribution Width 16.1 % (13.2-15.2)
[2021-12-30 20:11] LABS: Alanine Aminotransferase 38 units/L (7-56); Albumin 4.8 g/dL (3.9-5); BUN/Creatinine Ratio 11; Blood Urea Nitrogen 9 mg/dL (9-20); Calcium 9.3 mg/dL (8.4-10.2); Hemolysis Index 13
[2021-12-31 01:11] VITALS: BP 104/66
[2021-12-31] MEDS ORDERED: oxyCODONE /ACETAMINOPHEN 5-325MG TAB PO ONE ×2 (01:36→01:39)
[2021-12-31] MEDS ORDERED: EMLA CREAM 5 GM TP ONE (01:37)
--- NOTE | 2021-12-31 01:40 | Emergency Department Report ---
ED General Adult HPI - General Chief complaint: Abdominal Pain Stated complaint: ABD PAIN Time Seen by Provider: 12/31/21 01:15 Source: patient, EMS Mode of arrival: Stretcher Limitations: No Limitations - History of Present Illness Initial comments: 56-year-old male past medical history of a CVA in 2014 with left-sided deficit, heart failure and hypertension, patient presents to the ER with rectal pain for 1 week. Patient reports he think he has a hemorrhoid. Patient reports pain with bowel movements. Patient reports no other acute signs or symptoms Severity scale (0 -10): 0 - Related Data Previous Rx's Medication Instructions Recorded Last Taken Type Apixaban [Eliquis] 5 mg PO Q12HR tablet 11/25/21 Unknown Rx Aspirin 325 mg PO QDAY 90 Days #90 tablet 11/25/21 Unknown Rx AtorvaSTATin [Lipitor] 40 mg PO QHS 90 Days #90 tablet 11/25/21 Unknown Rx Furosemide [Lasix TAB] 20 mg PO QDAY tablet 11/25/21 Unknown Rx Levothyroxine [Synthroid] 100 mcg PO DAILY@0600 tablet 11/25/21 Unknown Rx QUEtiapine [SEROquel] 100 mg PO QHS tablet 11/25/21 Unknown Rx Sacubitril/Valsartan [Entresto 24 1 each PO BID tablet 11/25/21 Unknown Rx - 26 mg] busPIRone [Buspar] 5 mg PO DAILY tablet 11/25/21 Unknown Rx hydrOXYzine PAMOATE [Vistaril] 50 mg PO Q8H PRN capsule 11/25/21 Unknown Rx traZODone [Desyrel] 50 mg PO QHS tablet 11/25/21 Unknown Rx traMADoL [Ultram] 50 mg PO Q6HR PRN #10 tablet 12/03/21 Unknown Rx Acetaminophen/Codeine [Tylenol 1 tab PO Q6H PRN 3 Days #12 tab 12/31/21 Unknown Rx /Codeine # 3 tab] Allergies Allergy/AdvReac Type Severity Reaction Status Date / Time Sulfa (Sulfonamide Allergy Hives Verified 11/23/21 18:27 Antibiotics) ED Review of Systems ROS: Stated complaint: ABD PAIN Other details as noted in HPI Comment: All other systems reviewed and negative Gastrointestinal: other (Rectal pain) ED Past Medical Hx - Past Medical History Previous Medical History?: No Hx Hypertension: Yes Hx CVA: Yes (Left Hemiparesis) Hx Congestive Heart Failure: Yes Hx Diabetes: Yes Additional medical history: DVT. GI Bleed - Surgical History Hx Internal Defibrillator: Yes - Social History Smoking Status: Never Smoker Substance Use Type: None (Denies illicit drug use), Alcohol (Occasional) - Medications Home Medications: Home Medications Medication Instructions Recorded Confirmed Last Taken Type Apixaban [Eliquis] 5 mg PO Q12HR tablet 11/25/21 Unknown Rx Aspirin 325 mg PO QDAY 90 Days #90 tablet 11/25/21 Unknown Rx AtorvaSTATin [Lipitor] 40 mg PO QHS 90 Days #90 tablet 11/25/21 Unknown Rx Furosemide [Lasix TAB] 20 mg PO QDAY tablet 11/25/21 Unknown Rx Levothyroxine [Synthroid] 100 mcg PO DAILY@0600 tablet 11/25/21 Unknown Rx QUEtiapine [SEROquel] 100 mg PO QHS tablet 11/25/21 Unknown Rx Sacubitril/Valsartan [Entresto 24 1 each PO BID tablet 11/25/21 Unknown Rx - 26 mg] busPIRone [Buspar] 5 mg PO DAILY tablet 11/25/21 Unknown Rx hydrOXYzine PAMOATE [Vistaril] 50 mg PO Q8H PRN capsule 11/25/21 Unknown Rx traZODone [Desyrel] 50 mg PO QHS tablet 11/25/21 Unknown Rx traMADoL [Ultram] 50 mg PO Q6HR PRN #10 tablet 12/03/21 Unknown Rx Acetaminophen/Codeine [Tylenol 1 tab PO Q6H PRN 3 Days #12 tab 12/31/21 Unknown Rx /Codeine # 3 tab] ED Physical Exam - General Limitations: No Limitations General appearance: alert, in no apparent distress - Head Head exam: Present: atraumatic, normocephalic - Eye Eye exam: Present: normal appearance - ENT ENT exam: Present: mucous membranes moist - Neck Neck exam: Present: normal inspection - Respiratory Respiratory exam: Present: normal lung sounds bilaterally. Absent: respiratory distress - Cardiovascular Cardiovascular Exam: Present: regular rate, normal rhythm. Absent: systolic murmur, diastolic murmur, rubs, gallop - GI/Abdominal GI/Abdominal exam: Present: soft, normal bowel sounds - Rectal Rectal exam: Present: deferred, hemorrhoids (External) - Extremities Exam Extremities exam: Present: normal inspection - Back Exam Back exam: Present: normal inspection - Neurological Exam Neurological exam: Present: alert, oriented X3 - Psychiatric Psychiatric exam: Present: normal affect, normal mood - Skin Skin exam: Present: warm, dry, intact, normal color. Absent: rash ED Course Vital Signs 12/30/21 12/31/21 18:29 01:10 Temperature 97.2 F L 98.0 F Pulse Rate 94 H 66 Respiratory 18 16 Rate Blood Pressure 146/92 104/66 [Left] O2 Sat by Pulse 99 98 Oximetry ED Medical Decision Making - Lab Data Result diagrams: 12/30/21 19:31 12/30/21 19:31 - Medical Decision Making 56-year-old male rectal pain 1 week. On physical exam patient has an external hemorrhoid. Hemorrhoid is nonthrombosed. Patient received oral medication for pain as well as topical numbing for hemorrhoid discomfort. Patient informed to follow his primary care provider as well as given referrals to colorectal surgeons. Patient informed to get preparation H hemorrhoidal cream or ointment [id number] for topical usage for discomfort. Patient also received oral medication prescription for pain. Patient agrees with plan of care and verbalized understanding. Vital Signs 12/30/21 12/31/21 18:29 01:10 Temperature 97.2 F L 98.0 F Pulse Rate 94 H 66 Respiratory 18 16 Rate Blood Pressure 146/92 104/66 [Left] O2 Sat by Pulse 99 98 Oximetry Critical care attestation.: If time is entered above; I have spent that time in minutes in the direct care of this critically ill patient, excluding procedure time. ED Disposition Clinical Impression: Acute hemorrhoid, External hemorrhoid Disposition: 01 HOME / SELF CARE / HOMELESS Is pt being admited?: No Condition: Stable Instructions: Hemorrhoids, [id number], Nonsurgical Procedures for Hemorrhoids, Care After Prescriptions: Acetaminophen/Codeine [Tylenol /Codeine # 3 tab] 1 tab PO Q6H PRN 3 Days #12 tab PRN Reason: Pain , Severe (7-10) Referrals: ÓSCAR CARTER MD [Staff Physician] - 3-5 Days KEMAR MERLOS MD [Staff Physician] - 3-5 Days PAGE GAY MD [Staff Physician] - 3-5 Days
== END 2021-12-31 02:46 | disposition home or self-care (01) ==
LOC: ED 18:07
DX: K64.9 Unspecified hemorrhoids (principal); K64.4 Residual hemorrhoidal skin tags; Z88.2 Allergy status to sulfonamides; I10 Essential (primary) hypertension; E11.9 Type 2 diabetes mellitus without complications
CPT/HCPCS: 36415; 80053; 83690; 85025; 99284